=== PATIENT | female | born 1955 | race Hispanic/Latino ===

== ENCOUNTER 2018-10-03 07:17 | Inpatient (IN) | payer BC ==
[~2018-10-03] VITALS: Ht 162.6 cm; Wt 78.7 kg
[2018-10-03] MEDS ORDERED: ONDANSETRON HCL 4 MG/2 ML VIAL ONE (07:29)
[2018-10-03 08:04] LABS: BASOPHILS % (AUTO) 0.6 % (0.0-5.0); EOSINOPHILS % (AUTO) 0.4 % (0.0-8.0); HEMATOCRIT 42.7 % (36-48); MEAN CORPUSCULAR HEMOGLOBIN 33.1 pg (27.0-33.0); MEAN CORPUSCULAR VOLUME 97.4 fL (79-99); MONOCYTES % (AUTO) 7.6 % (3.0-13.0); NEUTROPHILS % (AUTO) 78.4 % (40.0-77.0); PLATELET COUNT (AUTO) 222 K/uL (130-400); RED BLOOD CELL COUNT(AUTO) 4.38 MIL/uL (4.00-5.50); RED CELL DISTRIBUTION WIDTH 12.9 % (11.0-15.5); WHITE BLOOD COUNT (AUTO) 12.9 K/uL (4.8-10.8)
[2018-10-03] MEDS ORDERED: KETOROLAC TROMETHAMINE 30MG/ML ONE (08:06)
[2018-10-03 08:19] LABS: APPEARANCE,URINE CLEAR (CLEAR); BILIRUBIN,URINE NEGATIVE (NEGATIVE); COLOR,URINE YELLOW (YELLOW); GLUCOSE, URINE (UA) >=1000 mg/dL (NEGATIVE); KETONES,URINE 15 mg/dL (NEGATIVE); LEUKOCYTE ESTERASE ,URINE NEGATIVE (NEGATIVE); NITRATE,URINE NEGATIVE (NEGATIVE); OCCULT BLOOD,URINE NEGATIVE (NEGATIVE); PROTEIN,URINE NEGATIVE (NEGATIVE); UROBILINOGEN,URINE 0.2 mg/dL (0.2-1.0)
[2018-10-03 08:33] LABS: BACTERIA,URINE Rare /HPF (None Seen); RBC,URINE None Seen /HPF (0-1); WBC,URINE 0-1 /HPF (0-1)
[2018-10-03 08:42] LABS: CREATININE 0.8 mg/dL (0.5-1.5); POTASSIUM 3.4 mmol/L (3.5-5.1)
[2018-10-03 08:48] LABS: ALBUMIN 3.1 g/dL (3.5-5.0); BILIRUBIN,TOTAL 0.4 mg/dL (0.2-1.0); TOTAL PROTEIN, SERUM 6.3 g/dL (6.0-8.3)
[2018-10-03] MEDS ORDERED: METRONIDAZOLE 500MG/100ML BAG 100 ML ONE (09:37)
[2018-10-03] MEDS ORDERED: LEVOFLOXACIN 750 MG/D5W 150 ML 150 ML ONE (10:13)
[2018-10-03] MEDS: METRONIDAZOLE 500MG/100ML BAG 100 ML IV SCH ×2 (11:15→18:55)
[2018-10-03] MEDS ORDERED: ONDANSETRON HCL 4 MG/2 ML VIAL IV PRN (11:15)
[2018-10-03 12:28] VITALS: BP 118/70
[2018-10-03] MEDS: SODIUM CHLORIDE 0.9% 1000ML 1,000 ML IV SCH (13:07)
--- NOTE | 2018-10-03 13:21 | NUR ---
DR SIMONS CALLED REGARDING THE CONSULT AND REQUESTED THAT THE HOSPITALIST CLARIFY THE CONSULT REASON. SPOKE WITH MICHAEL DAUGHERTY. WILL NOTIFY DR SIMONS.
[2018-10-03 16:00] VITALS: BP 128/71
[2018-10-03] MEDS ORDERED: INSULIN HUMULIN R 100 UNIT/ML 3ML SQ SCH (16:30)
[2018-10-03] MEDS ORDERED: GLUCAGON 1MG KIT 1 MG ML IM PRN (18:00)
[2018-10-03] MEDS ORDERED: DEXTROSE 50%-WATER 50 ML DISP.SYRIN IV PRN (18:00)
[2018-10-03] MEDS: MORPHINE SULFATE 2 MG/ML 1ML SYG IV PRN (18:58)
[2018-10-03 19:05] VITALS: BP 133/73
[2018-10-03] MEDS ORDERED: CITA40TA6 PO (19:23)
[2018-10-03] MEDS ORDERED: TRAZ-185 PO (19:23)
[2018-10-03] MEDS ORDERED: BENA10TA12 PO (19:23)
[2018-10-03] MEDS ORDERED: LEVO100 PO (19:23)
[2018-10-03] MEDS: FAMOTIDINE/PF 20 MG/2 ML VIAL IV SCH (20:34)
[2018-10-03 23:00] VITALS: BP 131/74
[2018-10-04 03:05] VITALS: BP 124/71
[2018-10-04] MEDS: SODIUM CHLORIDE 0.9% 1000ML 1,000 ML IV SCH ×4 (03:21→21:04)
[2018-10-04] MEDS: METRONIDAZOLE 500MG/100ML BAG 100 ML IV SCH ×3 (03:21→18:46)
[2018-10-04] MEDS: MORPHINE SULFATE 2 MG/ML 1ML SYG IV PRN ×3 (03:26→20:41)
[2018-10-04] MEDS ORDERED: CANA1TAB4 PO (04:10)
[2018-10-04] MEDS ORDERED: INSU100I21 SQ (04:10)
[2018-10-04] MEDS ORDERED: SIMV40TA5 PO (04:10)
[2018-10-04] MEDS ORDERED: GABA-531 PO (04:10)
[2018-10-04] MEDS: INSULIN HUMULIN R 100 UNIT/ML 3ML SQ SCH ×5 (05:46→20:43)
[2018-10-04 05:55] LABS: BASOPHILS % (AUTO) 1.2 % (0.0-5.0); EOSINOPHILS % (AUTO) 0.4 % (0.0-8.0); HEMATOCRIT 40.8 % (36-48); LYMPHOCYTES % (AUTO) 14.3 % (21.0-51.0); MEAN CORPUSCULAR HEMOGLOBIN 32.9 pg (27.0-33.0); MEAN CORPUSCULAR HGB CONC 33.8 g/dL (32.0-36.0); MEAN CORPUSCULAR VOLUME 97.3 fL (79-99); MONOCYTES % (AUTO) 8.1 % (3.0-13.0); PLATELET COUNT (AUTO) 228 K/uL (130-400); RED BLOOD CELL COUNT(AUTO) 4.19 MIL/uL (4.00-5.50); RED CELL DISTRIBUTION WIDTH 13.2 % (11.0-15.5); WHITE BLOOD COUNT (AUTO) 11.1 K/uL (4.8-10.8)
[2018-10-04 06:38] LABS: CREATININE 0.7 mg/dL (0.5-1.5); POTASSIUM 3.4 mmol/L (3.5-5.1)
[2018-10-04 08:00] VITALS: BP 133/77
[2018-10-04] MEDS: LEVOFLOXACIN 750 MG/D5W 150 ML 150 ML IV SCH (08:16)
[2018-10-04] MEDS: FAMOTIDINE/PF 20 MG/2 ML VIAL IV SCH ×2 (08:16→20:34)
[2018-10-04] MEDS: POTASSIUM CHLORIDE 10MEQ/100ML 100 ML IV PRN (10:31)
[2018-10-04] MEDS: LIDOCAINE HCL-MPF 1% 2ML VIAL IVP PRN (10:34)
[2018-10-04] MEDS ORDERED: LEVOFLOXACIN 500 MG/D5W 100 ML 100 ML IV SCH (11:15)
[2018-10-04 11:56] VITALS: BP 128/58
[2018-10-04] MEDS: GABAPENTIN 300 MG CAPSULE PO SCH ×2 (15:02→20:34)
[2018-10-04 16:00] VITALS: BP 132/68
--- NOTE | 2018-10-04 16:34 | NUR ---
DCP CM met with pt discussed dc plans. Pt is independent prior to admission, lives at home with sister. Denies any equipmentst/services. Pt feels safe to go back home, sister able to assist with transportation and needs as necessary. DC plan to home once stable. CM to cont to follow up. Addendum: 10/04/18 at 1636 by FLASH MANJARREZ LVN CM Amended: Links added.
[2018-10-04] MEDS: METFORMIN HCL PO SCH (17:00)
[2018-10-04] MEDS: CANAGLIFLOZIN PO SCH (17:00)
[2018-10-04 19:10] VITALS: BP 123/74
[2018-10-04] MEDS: CITALOPRAM 20 MG TABLET PO SCH (20:34)
[2018-10-04] MEDS: SIMVASTATIN 20 MG TABLET PO SCH (20:34)
[2018-10-04] MEDS: TRAZODONE HCL 50 MG TAB PO SCH (20:46)
[2018-10-04 23:15] VITALS: BP 119/54
[2018-10-05] MEDS: METRONIDAZOLE 500MG/100ML BAG 100 ML IV SCH ×3 (02:54→18:53)
[2018-10-05] MEDS: MORPHINE SULFATE 2 MG/ML 1ML SYG IV PRN ×3 (02:54→20:16)
[2018-10-05 03:15] VITALS: BP 126/73
[2018-10-05] MEDS: INSULIN HUMULIN R 100 UNIT/ML 3ML SQ SCH ×4 (06:09→20:44)
[2018-10-05] MEDS: LEVOTHYROXINE 100 MCG TABLET PO SCH (06:26)
[2018-10-05 08:00] VITALS: BP 118/64
[2018-10-05] MEDS: CANAGLIFLOZIN PO SCH ×2 (08:00→17:00)
[2018-10-05] MEDS: METFORMIN HCL PO SCH ×2 (08:00→17:00)
[2018-10-05 09:41] LABS: BASOPHILS % (AUTO) 0.7 % (0.0-5.0); EOSINOPHILS % (AUTO) 1.4 % (0.0-8.0); HEMATOCRIT 39.6 % (36-48); MEAN CORPUSCULAR HEMOGLOBIN 33.2 pg (27.0-33.0); MEAN CORPUSCULAR HGB CONC 33.6 g/dL (32.0-36.0); NEUTROPHILS % (AUTO) 73.9 % (40.0-77.0); PLATELET COUNT (AUTO) 209 K/uL (130-400); RED CELL DISTRIBUTION WIDTH 13.2 % (11.0-15.5); WHITE BLOOD COUNT (AUTO) 11.6 K/uL (4.8-10.8)
[2018-10-05] MEDS: SODIUM CHLORIDE 0.9% 1000ML 1,000 ML IV SCH (09:45)
[2018-10-05 09:46] LABS: CREATININE 0.7 mg/dL (0.5-1.5); POTASSIUM 3.3 mmol/L (3.5-5.1)
[2018-10-05] MEDS: LEVOFLOXACIN 750 MG/D5W 150 ML 150 ML IV SCH (09:46)
[2018-10-05] MEDS: FAMOTIDINE/PF 20 MG/2 ML VIAL IV SCH ×2 (09:52→20:15)
[2018-10-05] MEDS: GABAPENTIN 300 MG CAPSULE PO SCH ×3 (09:52→20:15)
[2018-10-05] MEDS: BENAZEPRIL HCL 10 MG TABLET PO SCH (09:52)
[2018-10-05 12:00] VITALS: BP 125/67
[2018-10-05] MEDS ORDERED: LOPERAMIDE HCL 2 MG CAP PO PRN (15:45)
[2018-10-05 16:00] VITALS: BP 126/64
[2018-10-05 20:00] VITALS: BP 121/66
[2018-10-05] MEDS: CITALOPRAM 20 MG TABLET PO SCH (20:15)
[2018-10-05] MEDS: SIMVASTATIN 20 MG TABLET PO SCH (20:15)
[2018-10-05] MEDS: TRAZODONE HCL 50 MG TAB PO SCH (20:15)
[2018-10-06] VITALS: BP 119/66
[2018-10-06] MEDS: SODIUM CHLORIDE 0.9% 1000ML 1,000 ML IV SCH ×3 (03:45→20:51)
[2018-10-06] MEDS: METRONIDAZOLE 500MG/100ML BAG 100 ML IV SCH ×3 (03:45→20:51)
[2018-10-06 04:00] VITALS: BP 117/60
[2018-10-06] MEDS: INSULIN HUMULIN R 100 UNIT/ML 3ML SQ SCH ×4 (06:22→20:53)
[2018-10-06] MEDS: LEVOTHYROXINE 100 MCG TABLET PO SCH (06:25)
[2018-10-06 06:46] LABS: BASOPHILS % (AUTO) 0.8 % (0.0-5.0); EOSINOPHILS % (AUTO) 6.8 % (0.0-8.0); HEMATOCRIT 35.7 % (36-48); LYMPHOCYTES % (AUTO) 21.1 % (21.0-51.0); MEAN CORPUSCULAR HEMOGLOBIN 33.8 pg (27.0-33.0); MEAN CORPUSCULAR HGB CONC 34.4 g/dL (32.0-36.0); MEAN CORPUSCULAR VOLUME 98.2 fL (79-99); MONOCYTES % (AUTO) 8.9 % (3.0-13.0); NEUTROPHILS % (AUTO) 62.4 % (40.0-77.0); PLATELET COUNT (AUTO) 240 K/uL (130-400); RED BLOOD CELL COUNT(AUTO) 3.63 MIL/uL (4.00-5.50); RED CELL DISTRIBUTION WIDTH 13.2 % (11.0-15.5); WHITE BLOOD COUNT (AUTO) 8.3 K/uL (4.8-10.8)
[2018-10-06 06:54] LABS: CREATININE 0.7 mg/dL (0.5-1.5)
[2018-10-06 07:00] VITALS: BP 133/72
--- NOTE | 2018-10-06 07:02 | NUR ---
Critical potassium of 3.0. Checked both pxysis but IV potassium 10 meq in 100 ml is not available. Called Pharmacy and said that they will bring it up. Potassium IV pending to be brought up.
[2018-10-06] MEDS: METFORMIN HCL PO SCH ×2 (08:00→17:00)
[2018-10-06] MEDS: CANAGLIFLOZIN PO SCH ×2 (08:00→17:00)
[2018-10-06] MEDS: GABAPENTIN 300 MG CAPSULE PO SCH ×3 (08:39→20:52)
[2018-10-06] MEDS: POTASSIUM CHLORIDE 10MEQ/100ML 100 ML IV PRN ×2 (08:39→12:30)
[2018-10-06] MEDS: LIDOCAINE HCL-MPF 1% 2ML VIAL IVP PRN ×2 (08:39→12:30)
[2018-10-06] MEDS: FAMOTIDINE/PF 20 MG/2 ML VIAL IV SCH ×2 (08:39→20:52)
[2018-10-06] MEDS: BENAZEPRIL HCL 10 MG TABLET PO SCH (08:39)
[2018-10-06] MEDS: LEVOFLOXACIN 750 MG/D5W 150 ML 150 ML IV SCH (08:40)
[2018-10-06 11:00] VITALS: BP 155/81
[2018-10-06 16:00] VITALS: BP 137/80
--- NOTE | 2018-10-06 17:06 | NUR ---
Recieved a call from Dr. Mann. Updated on patient history and imaging. Change to Immodium 2mg PO q 8hrs. Patient to continue with same antibiotics. Upon discharge, patient to continue on same antibiotic Levaquin 750mg PO for x 5 days and Flagyl 500mg PO x 5days. F/U with Dr. Mann in 3-4 days. Start pt on Protonix 40mg PO daily and continue upon discharge.
[2018-10-06] MEDS ORDERED: KETOROLAC TROMETHAMINE 15MG/ML IV PRN (18:30)
[2018-10-06 19:54] VITALS: BP 136/75
[2018-10-06] MEDS: MORPHINE SULFATE 2 MG/ML 1ML SYG IV PRN (20:49)
[2018-10-06] MEDS: CITALOPRAM 20 MG TABLET PO SCH (20:52)
[2018-10-06] MEDS: TRAZODONE HCL 50 MG TAB PO SCH (20:52)
[2018-10-06] MEDS: SIMVASTATIN 20 MG TABLET PO SCH (20:52)
[2018-10-06] MEDS ORDERED: LOPERAMIDE HCL 2 MG CAP PO ONE (20:57)
[2018-10-06] MEDS: LOPERAMIDE HCL 2 MG CAP PO PRN (20:57)
[2018-10-06] MEDS: MAGNESIUM 2GM PREMIX 50ML 50 ML IV PRN (23:49)
[2018-10-07] VITALS (7 sets, daily range): BP systolic 106–133; BP diastolic 63–82
[2018-10-07 05:05] LABS: EOSINOPHILS % (AUTO) 7.4 % (0.0-8.0); HEMATOCRIT 35.4 % (36-48); LYMPHOCYTES % (AUTO) 29.4 % (21.0-51.0); MEAN CORPUSCULAR HEMOGLOBIN 33.2 pg (27.0-33.0); MEAN CORPUSCULAR HGB CONC 34.1 g/dL (32.0-36.0); MEAN CORPUSCULAR VOLUME 97.3 fL (79-99); MONOCYTES % (AUTO) 10.7 % (3.0-13.0); NEUTROPHILS % (AUTO) 51.5 % (40.0-77.0); PLATELET COUNT (AUTO) 248 K/uL (130-400); RED BLOOD CELL COUNT(AUTO) 3.64 MIL/uL (4.00-5.50); WHITE BLOOD COUNT (AUTO) 5.7 K/uL (4.8-10.8)
[2018-10-07 05:31] LABS: CREATININE 0.6 mg/dL (0.5-1.5)
[2018-10-07 05:36] LABS: POTASSIUM 2.8 mmol/L (3.5-5.1)
[2018-10-07] MEDS: METRONIDAZOLE 500MG/100ML BAG 100 ML IV SCH ×3 (05:43→19:08)
[2018-10-07] MEDS: SODIUM CHLORIDE 0.9% 1000ML 1,000 ML IV SCH (05:43)
[2018-10-07] MEDS: INSULIN HUMULIN R 100 UNIT/ML 3ML SQ SCH ×4 (06:41→21:00)
[2018-10-07] MEDS: LEVOTHYROXINE 100 MCG TABLET PO SCH (07:42)
[2018-10-07] MEDS: CANAGLIFLOZIN PO SCH ×2 (08:00→17:00)
[2018-10-07] MEDS: METFORMIN HCL PO SCH ×2 (08:00→17:00)
[2018-10-07] MEDS: POTASSIUM CHLORIDE 10MEQ/100ML 100 ML IV PRN (08:06)
[2018-10-07] MEDS: LEVOFLOXACIN 750 MG/D5W 150 ML 150 ML IV SCH (08:07)
[2018-10-07] MEDS: LIDOCAINE HCL-MPF 1% 2ML VIAL IVP PRN (08:07)
[2018-10-07] MEDS: PANTOPRAZOLE SODIUM 40 MG TABLET.DR PO SCH (08:07)
[2018-10-07] MEDS: BENAZEPRIL HCL 10 MG TABLET PO SCH (08:07)
[2018-10-07] MEDS: FAMOTIDINE/PF 20 MG/2 ML VIAL IV SCH ×2 (08:07→20:14)
[2018-10-07] MEDS: GABAPENTIN 300 MG CAPSULE PO SCH ×3 (08:11→20:14)
[2018-10-07] MEDS: LOPERAMIDE HCL 2 MG CAP PO PRN ×2 (08:12→19:17)
[2018-10-07] MEDS ORDERED: LACTOBACILLUS RHAMNOSUS GG 1 EACH CAP.SPRINK PO SCH (10:15)
[2018-10-07] MEDS ORDERED: POTASSIUM CHLORIDE 20 MEQ ERTAB PO SCH (10:15)
[2018-10-07] MEDS: LACTOBACILLUS RHAMNOSUS GG 1 EACH CAP.SPRINK PO SCH ×2 (15:47→19:17)
[2018-10-07] MEDS: CITALOPRAM 20 MG TABLET PO SCH (20:13)
[2018-10-07] MEDS: SIMVASTATIN 20 MG TABLET PO SCH (20:13)
[2018-10-07] MEDS: POTASSIUM CHLORIDE 20 MEQ ERTAB PO SCH (20:14)
[2018-10-07] MEDS: TRAZODONE HCL 50 MG TAB PO SCH (20:17)
[2018-10-08] MEDS: METRONIDAZOLE 500MG/100ML BAG 100 ML IV SCH ×3 (03:06→20:14)
[2018-10-08] MEDS: LOPERAMIDE HCL 2 MG CAP PO PRN ×2 (03:06→20:22)
[2018-10-08 03:10] VITALS: BP 137/82
[2018-10-08 04:44] LABS: HEMATOCRIT 35.3 % (36-48); MEAN CORPUSCULAR HEMOGLOBIN 33.1 pg (27.0-33.0); MEAN CORPUSCULAR HGB CONC 34.2 g/dL (32.0-36.0); MEAN CORPUSCULAR VOLUME 96.9 fL (79-99); PLATELET COUNT (AUTO) 286 K/uL (130-400); RED BLOOD CELL COUNT(AUTO) 3.65 MIL/uL (4.00-5.50); RED CELL DISTRIBUTION WIDTH 13.3 % (11.0-15.5)
[2018-10-08 05:00] LABS: CREATININE 0.6 mg/dL (0.5-1.5); POTASSIUM 3.1 mmol/L (3.5-5.1)
[2018-10-08] MEDS: POTASSIUM CHLORIDE 10MEQ/100ML 100 ML IV PRN ×2 (05:08→19:22)
[2018-10-08] MEDS: LIDOCAINE HCL-MPF 1% 2ML VIAL IVP PRN ×2 (05:08→19:22)
[2018-10-08] MEDS: INSULIN HUMULIN R 100 UNIT/ML 3ML SQ SCH ×4 (06:38→21:00)
[2018-10-08] MEDS: LEVOTHYROXINE 100 MCG TABLET PO SCH (06:41)
[2018-10-08 08:00] VITALS: BP 126/73
[2018-10-08] MEDS: CANAGLIFLOZIN PO SCH ×2 (08:00→17:00)
[2018-10-08] MEDS: METFORMIN HCL PO SCH ×2 (08:00→17:00)
[2018-10-08] MEDS: LEVOFLOXACIN 750 MG/D5W 150 ML 150 ML IV SCH (10:23)
[2018-10-08] MEDS: FAMOTIDINE/PF 20 MG/2 ML VIAL IV SCH ×2 (10:24→20:15)
[2018-10-08] MEDS: GABAPENTIN 300 MG CAPSULE PO SCH ×3 (10:25→20:15)
[2018-10-08] MEDS: POTASSIUM CHLORIDE 20 MEQ ERTAB PO SCH ×2 (10:26→21:40)
[2018-10-08] MEDS: LACTOBACILLUS RHAMNOSUS GG 1 EACH CAP.SPRINK PO SCH ×3 (10:26→20:15)
[2018-10-08] MEDS: BENAZEPRIL HCL 10 MG TABLET PO SCH (10:26)
[2018-10-08] MEDS: PANTOPRAZOLE SODIUM 40 MG TABLET.DR PO SCH (10:27)
[2018-10-08 12:00] VITALS: BP 124/63
--- NOTE | 2018-10-08 13:13 | NUR ---
Nutrition Intervention: Nutrition screen based on LOS x 5 days. Pt. admitted with Dx of Enterocolitis. Pt. S/P CT Abd/Pelvis(10/03/18) which showed findings of enterocolitis. Pt. on Low Fat Soft diet with fair p.o. intake, per pt. Pt. c/o problems with Nausea/diarrhea. Pt. on medication for upper and lower GI distress. Spoke with pt. regarding nut. supplementation but pt. declined due to may be lactose intolerant. Pt. requesting lactose free diet. Labs reviewed(Alb 3.1, BG 157). LBM: 10/07/18, loose. SR-10, elastic. BMI: 29.8, overweight for age. Pt. reports has been educated in the past on Diabetic diet and refused diet education at this time. Recommendations: 1) Rec. 75gm CCD Lactose Free Low Fat Soft diet. 2) Continue to monitor pt's nutritional status. 3) Consult RD as nutrition concerns arise. Addendum: 10/08/18 at [address] Amended: Links added.
[2018-10-08 16:00] VITALS: BP 113/66
[2018-10-08 19:05] VITALS: BP 130/70
[2018-10-08] MEDS: CITALOPRAM 20 MG TABLET PO SCH (20:14)
[2018-10-08] MEDS: SIMVASTATIN 20 MG TABLET PO SCH (21:40)
[2018-10-08] MEDS: TRAZODONE HCL 50 MG TAB PO SCH (21:40)
[2018-10-08 23:05] VITALS: BP 112/78
[2018-10-09 03:05] VITALS: BP 128/74
[2018-10-09] MEDS: METRONIDAZOLE 500MG/100ML BAG 100 ML IV SCH ×3 (03:35→23:08)
[2018-10-09] MEDS: LOPERAMIDE HCL 2 MG CAP PO PRN (05:15)
[2018-10-09 06:20] LABS: HEMATOCRIT 37.8 % (36-48); MEAN CORPUSCULAR HEMOGLOBIN 32.7 pg (27.0-33.0); MEAN CORPUSCULAR HGB CONC 33.2 g/dL (32.0-36.0); MEAN CORPUSCULAR VOLUME 98.6 fL (79-99); PLATELET COUNT (AUTO) 265 K/uL (130-400); RED BLOOD CELL COUNT(AUTO) 3.84 MIL/uL (4.00-5.50); RED CELL DISTRIBUTION WIDTH 13.6 % (11.0-15.5); WHITE BLOOD COUNT (AUTO) 6.5 K/uL (4.8-10.8)
[2018-10-09 06:30] LABS: CREATININE 0.7 mg/dL (0.5-1.5); MAGNESIUM 1.5 mg/dL (1.80-2.40); POTASSIUM 3.3 mmol/L (3.5-5.1)
[2018-10-09] MEDS: POTASSIUM CHLORIDE 20 MEQ ERTAB PO SCH ×2 (07:05→23:10)
[2018-10-09] MEDS: LEVOTHYROXINE 100 MCG TABLET PO SCH (07:05)
[2018-10-09] MEDS: MAGNESIUM 2GM PREMIX 50ML 50 ML IV PRN (07:05)
[2018-10-09] MEDS: INSULIN HUMULIN R 100 UNIT/ML 3ML SQ SCH ×4 (07:12→21:00)
[2018-10-09 07:13] LABS: EOSINOPHILS % (MANUAL) 6 % (1-6); LYMPHOCYTES % (MANUAL) 41 % (22-44); MONOCYTES % (MANUAL) 10 % (2-9); SEGMENTED NEUTROPHILS % 43 % (40-70)
[2018-10-09 07:14] LABS: MAN.DIFF COMMENT-IMPRESSION MANUAL DIFFERENTIAL
[2018-10-09 07:15] LABS: PLATELET MORPHOLOGY COMMENT ADEQUATE
[2018-10-09] MEDS: CANAGLIFLOZIN PO SCH ×2 (08:00→17:00)
[2018-10-09] MEDS: METFORMIN HCL PO SCH ×2 (08:00→17:00)
[2018-10-09 08:01] VITALS: BP 133/74
[2018-10-09] MEDS: FAMOTIDINE/PF 20 MG/2 ML VIAL IV SCH ×2 (09:00→23:08)
[2018-10-09] MEDS: BENAZEPRIL HCL 10 MG TABLET PO SCH (09:08)
[2018-10-09] MEDS: LACTOBACILLUS RHAMNOSUS GG 1 EACH CAP.SPRINK PO SCH ×3 (09:08→23:09)
[2018-10-09] MEDS: PANTOPRAZOLE SODIUM 40 MG TABLET.DR PO SCH (09:08)
[2018-10-09] MEDS: GABAPENTIN 300 MG CAPSULE PO SCH ×3 (09:09→23:09)
[2018-10-09] MEDS: LEVOFLOXACIN 750 MG/D5W 150 ML 150 ML IV SCH (09:09)
[2018-10-09 12:00] VITALS: BP 113/73
[2018-10-09 16:00] VITALS: BP 130/74
[2018-10-09 19:05] VITALS: BP 123/61
[2018-10-09 23:05] VITALS: BP 134/76
[2018-10-09] MEDS: SIMVASTATIN 20 MG TABLET PO SCH (23:09)
[2018-10-09] MEDS: CITALOPRAM 20 MG TABLET PO SCH (23:09)
[2018-10-09] MEDS: TRAZODONE HCL 50 MG TAB PO SCH (23:10)
[2018-10-10 03:05] VITALS: BP_SYST 128; BP_SYST 134; BP_DIAS 76
[2018-10-10] MEDS: METRONIDAZOLE 500MG/100ML BAG 100 ML IV SCH (04:08)
[2018-10-10 07:00] VITALS: BP 135/74
[2018-10-10] MEDS: LEVOTHYROXINE 100 MCG TABLET PO SCH (07:30)
[2018-10-10] MEDS: INSULIN HUMULIN R 100 UNIT/ML 3ML SQ SCH (07:30)
[2018-10-10] MEDS: CANAGLIFLOZIN PO SCH (08:00)
[2018-10-10] MEDS: METFORMIN HCL PO SCH (08:00)
[2018-10-10 08:05] LABS: BASOPHILS % (AUTO) 1.3 % (0.0-5.0); EOSINOPHILS % (AUTO) 5.3 % (0.0-8.0); HEMATOCRIT 40.4 % (36-48); LYMPHOCYTES % (AUTO) 34.7 % (21.0-51.0); MEAN CORPUSCULAR HEMOGLOBIN 32.9 pg (27.0-33.0); MEAN CORPUSCULAR HGB CONC 33.9 g/dL (32.0-36.0); MEAN CORPUSCULAR VOLUME 97.2 fL (79-99); MONOCYTES % (AUTO) 7.4 % (3.0-13.0); NEUTROPHILS % (AUTO) 51.3 % (40.0-77.0); PLATELET COUNT (AUTO) 285 K/uL (130-400); RED BLOOD CELL COUNT(AUTO) 4.16 MIL/uL (4.00-5.50); RED CELL DISTRIBUTION WIDTH 13.6 % (11.0-15.5); WHITE BLOOD COUNT (AUTO) 6.1 K/uL (4.8-10.8)
[2018-10-10 08:14] LABS: CREATININE 0.7 mg/dL (0.5-1.5); POTASSIUM 3.9 mmol/L (3.5-5.1)
[2018-10-10] MEDS: LACTOBACILLUS RHAMNOSUS GG 1 EACH CAP.SPRINK PO SCH (09:00)
[2018-10-10] MEDS: FAMOTIDINE/PF 20 MG/2 ML VIAL IV SCH (09:00)
[2018-10-10] MEDS: GABAPENTIN 300 MG CAPSULE PO SCH (09:00)
[2018-10-10] MEDS: PANTOPRAZOLE SODIUM 40 MG TABLET.DR PO SCH (09:00)
[2018-10-10] MEDS: LEVOFLOXACIN 750 MG/D5W 150 ML 150 ML IV SCH (09:00)
[2018-10-10] MEDS: POTASSIUM CHLORIDE 20 MEQ ERTAB PO SCH (09:00)
[2018-10-10] MEDS: BENAZEPRIL HCL 10 MG TABLET PO SCH (09:00)
[2018-10-10] MEDS ORDERED: LACT1CAP79 PO (09:10)
[2018-10-10] MEDS ORDERED: PANT40TA PO (09:13)
== END 2018-10-10 11:05 | disposition home or self-care (01) | DRG 392 ==
LOC: EDH 07:17 → OBSVTOIN 09:57 → EDHIP 09:57 → 3DH 12:17
PROVIDERS: ADMIT Hospitalist; ATTEND Hospitalist
DX: A08.4 Viral intestinal infection, unspecified (principal); K56.7 Ileus, unspecified; E44.0 Moderate protein-calorie malnutrition; K76.0 Fatty (change of) liver, not elsewhere classified; E87.6 Hypokalemia; E83.42 Hypomagnesemia; E78.5 Hyperlipidemia, unspecified; E11.9 Type 2 diabetes mellitus without complications; E03.9 Hypothyroidism, unspecified; I10 Essential (primary) hypertension; K42.9 Umbilical hernia without obstruction or gangrene; F32.9 Major depressive disorder, single episode, unspecified; E78.00 Pure hypercholesterolemia, unspecified; Z79.899 Other long term (current) drug therapy; Z88.5 Allergy status to narcotic agent; Z68.29 Body mass index [BMI] 29.0-29.9, adult
CPT/HCPCS: 36415; 72100; 74018; 74176; 80048; 80053; 81001; 82270; 82948; 83690; 83735; 84132; 85025; 85027; 87324; 93005; G0378; J1885; J1956; J2405; J3475; J3490; J7030